=== PATIENT | female | born 1955 | race Caucasian/White ===

== ENCOUNTER → 2016-12-19 | Outpatient (CLI) | payer BC | LOC: COL.PUL 12:58 | DX: J40 Bronchitis, not specified as acute or chronic (principal) ==

== ENCOUNTER 2017-09-08 08:11 | Emergency (ER) | payer BC ==
[~2017-09-08] VITALS: Ht 170.2 cm; Wt 143.6 kg
[2017-09-08 08:31] VITALS: TEMP 97.4
[2017-09-08 09:44] LABS: BASO % 0.5 % (0.0-2.0); GRAN # 2.7 (1.4-6.5); GRAN % 65.2 % (42.2-75.2); HEMOGLOBIN 14.6 g/dl (12.5-16.0); LYMPH % 23.1 % (20.0-51.0); MEAN CELL VOLUME 88 fl (80.0-100.0); MEAN CORPUSCULAR HEMOGLOBIN 30 pg (27.0-31.0); MEAN CORPUSCULAR HGB CONC 34 g/dl (33.0-37.0); MEAN PLATELET VOLUME 9.2 fl (7.4-10.4); MONO # 0.4 (0.1-0.6); PLATELET COUNT 219 K/mm3 (130-400); RED BLOOD COUNT 4.88 M/mm3 (4.10-5.30); WHITE BLOOD COUNT 4.2 K/mm3 (4.8-10.8)
[2017-09-08 09:55] LABS: ADJUSTED CALCIUM 9.4 mg/dL (8.4-10.2); BILIRUBIN,TOTAL 0.6 mg/dL (0.0-1.0); CALCIUM 9.4 mg/dL (8.4-10.2); CREATININE, serum 0.83 mg/dL (0.52-1.25); TOTAL PROTEIN 9.4 gm/dL (6.4-8.2)
[2017-09-08 11:11] LABS: COLLECTION METHOD CLEAN CATCH
[2017-09-08] MEDS ORDERED: VALIUM 2MG T2 MG/TAB PO (11:21)
[2017-09-08] MEDS ORDERED: PERCOCET 325 MG1 TA2 PO (11:21)
[2017-09-08 11:23] LABS: MUCOUS Present /lpf; PH 5 (5-8); URINE APPEARANCE Hazy; URINE BACTERIA Rare /hpf; URINE BILIRUBIN Negative (NEGATIVE); URINE BLOOD Negative (NEGATIVE); URINE COLOR Yellow; URINE GLUCOSE Negative (NEGATIVE); URINE KETONE Negative (NEGATIVE); URINE LEUKOCYTE ESTERASE Negative (NEGATIVE); URINE PROTEIN(semi-quant) Negative (NEGATIVE); URINE RBC None Seen /hpf; URINE UROBILINOGEN Negative (NEGATIVE); URINE WBC 0-2 /hpf
[2017-09-08 11:43] VITALS: BP 149/73; PULSE 66
== END 2017-09-08 11:48 | disposition home or self-care (01) ==
LOC: COL.ER 08:11
PROVIDERS: Emergency Medicine
DX: M54.16 Radiculopathy, lumbar region (principal); Z90.710 Acquired absence of both cervix and uterus; Z90.49 Acquired absence of other specified parts of digestive tract; X50.0XXA Overexertion from strenuous movement or load, initial encounter
CPT/HCPCS: J1170; J1885; J7040

== ENCOUNTER → 2017-10-17 | Outpatient (CLI) | payer BC ==
[~2017-10-17] MED LIST: PERCOCET 325 MG1 TA2 PO; VALIUM 2MG T2 MG/TAB PO
== END ==
LOC: MHCPAIN 08:34
DX: G89.29 Other chronic pain (principal); M47.27 Other spondylosis with radiculopathy, lumbosacral region; Z87.891 Personal history of nicotine dependence
CPT/HCPCS: G0463

== ENCOUNTER → 2017-12-05 | Outpatient (CLI) | payer BC | LOC: MHCPAIN 08:44 | DX: G89.29 Other chronic pain (principal); M47.817 Spondylosis without myelopathy or radiculopathy, lumbosacral region; M54.16 Radiculopathy, lumbar region; M53.3 Sacrococcygeal disorders, not elsewhere classified; M48.061 Spinal stenosis, lumbar region without neurogenic claudication | CPT/HCPCS: G0463 ==

== ENCOUNTER → 2018-06-24 | Outpatient (CLI) | payer BC | LOC: COL.RAD 08:48 | DX: K76.0 Fatty (change of) liver, not elsewhere classified (principal); R74.0 Nonspecific elevation of levels of transaminase and lactic acid dehydrogenase [LDH]; Z90.49 Acquired absence of other specified parts of digestive tract ==

== ENCOUNTER → 2018-08-07 | Outpatient (CLI) | payer BC | LOC: MC.RAD 10:15 | DX: Z12.31 Encounter for screening mammogram for malignant neoplasm of breast (principal) ==

== ENCOUNTER 2019-04-30 07:57 | Day surgery (SDC) | payer BC ==
[~2019-04-30] VITALS: Ht 170.2 cm; Wt 136.7 kg
[2019-04-30] VITALS (323 sets, daily range): BP systolic 98–141; BP diastolic 48–82; PULSE 57–78; TEMP 97.4–98.5; O2SAT 94–100
--- NOTE | 2019-04-30 08:25 | NUR ---
MD notified about H&P not being up to date and asked to do short form in order to have that done before going to the dental laboratory technology teacher for this morning's procedure. stated he would do it.
[2019-04-30 08:38] LABS: PROTHROMBIN TIME 11.4 SECONDS (9.7-12.8)
[2019-04-30 08:50] LABS: CALCIUM 9.4 mg/dL (8.4-10.2); CREATININE, serum 0.76 (0.52-1.25); POTASSIUM 4.2 mmol/L (3.4-5.0)
[2019-04-30 09:04] LABS: HEMATOCRIT 44.2 % (37.0-47.0); HEMOGLOBIN 14.9 g/dl (12.5-16.0); MEAN CELL VOLUME 89 fl (80.0-100.0); MEAN CORPUSCULAR HEMOGLOBIN 30 pg (27.0-31.0); MEAN CORPUSCULAR HGB CONC 34 g/dl (33.0-37.0); MEAN PLATELET VOLUME 9.8 fl (7.4-10.4); PLATELET COUNT 270 K/mm3 (130-400); RED BLOOD COUNT 4.97 M/mm3 (4.10-5.30)
--- NOTE | 2019-04-30 09:17 | NUR ---
notified that H&P is still not updated, and we would need that completed before taking back to the clinical lab specialist. stated he would do this electronically.
[2019-04-30] MEDS ORDERED: IMURAN 50MG TAB50 MG PO (09:47)
[2019-04-30] MEDS ORDERED: LASIX 20MG TABL20 MG PO (09:49)
[2019-04-30] MEDS ORDERED: SYNTHROID 0.0.025 MG PO (09:53)
[2019-04-30] MEDS ORDERED: MICARDIS40 MG PO (09:53)
[2019-04-30] MEDS ORDERED: EPA FISH OIL1 SGL PO (09:54)
[2019-04-30] MEDS ORDERED: K-TAB20 PO (09:54)
[2019-04-30] MEDS ORDERED: VITAMIN B COMPL1 SGL PO (09:55)
[2019-04-30] MEDS ORDERED: CENTRUM SILVER1 CTB PO (09:55)
[2019-04-30] MEDS ORDERED: VITAMIN C500 MG PO (09:56)
[2019-04-30] MEDS ORDERED: VITAMIN D31000 IU PO (09:56)
--- NOTE | 2019-04-30 10:02 | NUR ---
ALL MEDICATIONS GIVEN VORB WITH MD. SEE MERGE FOR ALL MEDICATION ADMIN TIMES. SEE MERGE FOR ALL RASS ASSESSMENTS DURING AND POST PROCEDURE. POSITIVE BARBEAU'S TEST IN THE RIGHT WRIST, RADIAL PULSE +2.
--- NOTE | 2019-04-30 11:15 | NUR ---
Pt arrives to ICU rm 7 via bed. Pt is A&O x4, denies pain. Compression band in place on right radial site with 13cc Air Inflated. VSS.
--- NOTE | 2019-04-30 11:29 | NUR ---
Patient transported to ICU 7 with Zoll [address]for monitoring. Patient hooked up to ICU monitors. VS stable, patient denies any pain at this time. Visualized TR band with BROOKLYNN Haynes. TR band remains in place with 13 mls of air in the band. No oozing or hematoma noted at this time. Site is soft and nontender, cap refill <3 seconds. Discussed importance of wrist restrictions with patient. Angiomax infusing, per MD order. Visualized IV pump with RN. All questions and concerns addressed. Bed in locked and lowest position, call light within reach.
--- NOTE | 2019-04-30 19:23 | NUR ---
REPORT GIVEN TO BROOKLYNN LEVY.
[2019-04-30] MEDS ORDERED: NITROSTAT0.4 MG/TAB SL (20:01)
[2019-04-30] MEDS ORDERED: PLAVIX 75MG TAB75 MG PO (20:03)
[2019-04-30] MEDS ORDERED: ASPIRIN 81M81 MG/TA2 PO (20:03)
--- NOTE | 2019-04-30 20:22 | NUR ---
Patient discharged at this time, patient site CDI, no issues, accompanied by daughter. Ambulated to car, no issues, passing off care of patient.
== END 2019-04-30 20:22 | disposition home or self-care (01) ==
LOC: COL.CAR 07:57 → ICU 12:45 → COL.CAR 20:22
PROVIDERS: Internal Medicine Interventional Cardiology
DX: I25.10 Atherosclerotic heart disease of native coronary artery without angina pectoris (principal); Z88.0 Allergy status to penicillin; Z88.8 Allergy status to other drugs, medicaments and biological substances
CPT/HCPCS: OP; C9600; J0583; J1644; J2250; J3010; Q9967

== ENCOUNTER → 2019-09-17 | Outpatient (CLI) | payer BC ==
[~2019-09-17] MED LIST changes: +ASPIRIN 81M81 MG/TA2 PO; +CENTRUM SILVER1 CTB PO; +EPA FISH OIL1 SGL PO; +IMURAN 50MG TAB50 MG PO; +K-TAB20 PO; +LASIX 20MG TABL20 MG PO; +MICARDIS40 MG PO; +NITROSTAT0.4 MG/TAB SL; +PLAVIX 75MG TAB75 MG PO; +SYNTHROID 0.0.025 MG PO; +VITAMIN B COMPL1 SGL PO; +VITAMIN C500 MG PO; +VITAMIN D31000 IU PO
== END ==
LOC: MC.RAD 10:16
DX: Z12.31 Encounter for screening mammogram for malignant neoplasm of breast (principal)

== ENCOUNTER 2020-05-12 12:34 | Day surgery (SDC) | payer BC ==
[~2020-05-12] VITALS: Ht 170.2 cm; Wt 145.0 kg
[2020-05-12] VITALS (11 sets, daily range): BP systolic 108–125; BP diastolic 43–73; PULSE 66–83; TEMP 98.4
[2020-05-12] MEDS ORDERED: ASPIRIN 81M81 MG/TA2 PO (13:38)
[2020-05-12] MEDS ORDERED: PLAVIX 75MG TAB75 MG PO (13:39)
[2020-05-12] MEDS ORDERED: PRIVIGEN 100 M100 ML IV (13:42)
[2020-05-12] MEDS ORDERED: CLARITIN 1010 MG/TAB PO (13:43)
[2020-05-12] MEDS ORDERED: TOPROL XL 25MG25 MG PO (13:44)
[2020-05-12 13:45] LABS: HEMATOCRIT 40.1 % (37.0-47.0); HEMOGLOBIN 13.7 g/dl (12.5-16.0); MEAN CELL VOLUME 91 fl (80.0-100.0); MEAN CORPUSCULAR HEMOGLOBIN 31 pg (27.0-31.0); MEAN CORPUSCULAR HGB CONC 34 g/dl (33.0-37.0); MEAN PLATELET VOLUME 9.3 fl (7.4-10.4); PLATELET COUNT 227 K/mm3 (130-400); RED BLOOD COUNT 4.43 M/mm3 (4.10-5.30)
[2020-05-12] MEDS ORDERED: REPATHA SU140 MG/1 M SQ (13:45)
[2020-05-12 13:50] LABS: INR 1.1 (0.8-3.0)
[2020-05-12 13:54] LABS: CALCIUM 9.2 mg/dL (8.4-10.2); CREATININE, serum 0.78 (0.52-1.25); POTASSIUM 3.8 mmol/L (3.4-5.0)
--- NOTE | 2020-05-12 14:06 | NUR ---
SEE MERGE DOCUMENTATION FOR MEDICATION ADMINISTRATION AND INTRA/POST PROCEDURE SEDATION ASSESSMENT.
--- NOTE | 2020-05-12 19:05 | NUR ---
Pt care was assumed at 1715 from Charo OVERTON. Pt has been tolerating recovery well, both rt radial and rt femoral puncture sites are free from bleeding or hematoma. TR band was deflated over about 30 minutes without incident, site was dressed with bandaid, folded 2x2 and coban dressing. cms remained intact. Pt's bedrest was completed at 1850, and she was able to be up and ambulatory with no problem, groin site remained soft without bleeding. I reviewed dc and fu instructions with patient and her neice at . pt and neice verbalized understanding. iv to lh was dc'd with cath intact, dressing was applied. pt was escorted to exit at 1905 via wheelchair.
== END 2020-05-12 19:05 | disposition home or self-care (01) ==
LOC: COL.CAR 12:34
PROVIDERS: Internal Medicine Interventional Cardiology
DX: I25.10 Atherosclerotic heart disease of native coronary artery without angina pectoris (principal); E78.5 Hyperlipidemia, unspecified; E03.9 Hypothyroidism, unspecified; Z95.5 Presence of coronary angioplasty implant and graft; Z20.828 Contact with and (suspected) exposure to other viral communicable diseases; Z79.899 Other long term (current) drug therapy; Z79.82 Long term (current) use of aspirin; Z87.891 Personal history of nicotine dependence; E11.9 Type 2 diabetes mellitus without complications; M60.9 Myositis, unspecified; Z79.02 Long term (current) use of antithrombotics/antiplatelets; Z88.0 Allergy status to penicillin; Z88.8 Allergy status to other drugs, medicaments and biological substances
CPT/HCPCS: C1760; C1769; C1894; J1644; J2250; J3010; Q9967

== ENCOUNTER → 2020-10-05 | Outpatient (CLI) | payer BC ==
[~2020-10-05] MED LIST changes: +CLARITIN 1010 MG/TAB PO; +PRIVIGEN 100 M100 ML IV; +REPATHA SU140 MG/1 M SQ; +TOPROL XL 25MG25 MG PO
== END ==
LOC: MC.RAD 15:43
DX: Z12.31 Encounter for screening mammogram for malignant neoplasm of breast (principal)

== ENCOUNTER → 2021-12-11 | Outpatient (CLI) | payer BC | LOC: MC.RAD 15:17 | DX: Z12.31 Encounter for screening mammogram for malignant neoplasm of breast (principal) ==

== ENCOUNTER → 2022-01-09 | Outpatient (CLI) | payer BC | LOC: COL.LAB 13:57 | DX: M79.89 Other specified soft tissue disorders (principal) ==

== ENCOUNTER → 2024-04-05 | Outpatient (CLI) | payer BC | LOC: MC.RAD 03-09 14:06 | DX: Z12.31 Encounter for screening mammogram for malignant neoplasm of breast (principal) ==